=== PATIENT | female | born 1950 | race American Indian/Alaskan Native ===

== ENCOUNTER 2017-07-30 13:44 | Inpatient (IN) | payer BC, MEDICARE ==
[2017-07-30] MEDS: Sodium Chloride 0.9% 1,000 ML IV SCH ×3 (14:15→22:32)
[2017-07-30 14:29] LABS: BASO # 0.03 K/mm3 (0.0-2.0); BASO % 0.3 % (0.0-3.0); GRAN # 7.22 (1.4-6.5); GRAN % 80.8 % (50.0-68.0); HEMOGLOBIN 15.5 g/dL (12.0-16.0); LYMPH # 1.4 (1.2-3.4); LYMPH % 15.5 % (22.0-35.0); MEAN CELL VOLUME 91.6 fl (80.0-105.0); MEAN CORPUSCULAR HEMOGLOBIN 31.6 pg (25.0-35.0); MEAN CORPUSCULAR HGB CONC 34.5 g/dl (31.0-37.0); MEAN PLATELET VOLUME 10.1 fl (7.0-11.0); MONO # 0.3 (0.1-0.6); MONO % 3.4 % (1.0-6.0); RBC 4.9 10^6/uL (3.5-6.1); RED CELL DISTRIBUTION WIDTH 13.4 % (11.5-14.5); WHITE BLOOD COUNT 8.9 10^3/ul (4.5-11.0)
[2017-07-30 14:40] LABS: ALB/GLOB RATIO 1.5 (1.1-1.8); ALBUMIN 4.7 g/dL (3.0-4.8); ALT/SGPT 72 U/L (7-56); AMYLASE 128 U/L (35-125); AST/SGOT 48 U/L (14-36); BLOOD UREA NITROGEN 18 mg/dL (7-21); CALCIUM 11.9 mg/dL (8.4-10.5); GFR AFRICAN-AMERICAN > 60; GFR NON-AFRICAN AMERICAN > 60; LIPASE 63 U/L (23-300)
[2017-07-30 14:46] LABS: INR 0.94 (0.93-1.08); PROTHROMBIN TIME 10.7 SECONDS (9.4-12.5)
[2017-07-30 14:51] LABS: TROPONIN I < 0.01 ng/mL
--- NOTE | 2017-07-30 15:14 | RAD ---
HISTORY: vomiting - r/o free air COMPARISON: No prior. FINDINGS: LUNGS: The lungs are well inflated and clear. PLEURA: No significant pleural effusion identified, no pneumothorax apparent. CARDIOVASCULAR: Normal. OSSEOUS STRUCTURES: No significant abnormalities. VISUALIZED UPPER ABDOMEN: Normal. OTHER FINDINGS: None. IMPRESSION: No active pulmonary disease.
[2017-07-30 16:27] LABS: URINE BILIRUBIN NEGATIVE (NEGATIVE); URINE BLOOD TRACE-INTACT (NEGATIVE); URINE GLUCOSE (UA) NEGATIVE (NEGATIVE); URINE LEUKOCYTE ESTERASE NEGATIVE Leu/uL (NEGATIVE); URINE PROTEIN TRACE mg/dL (<30 mg/dL); URINE UROBILINOGEN 0.2 E.U./dL (<1 E.U./dL)
[2017-07-30 16:28] LABS: URINE APPEARANCE CLEAR (CLEAR); URINE COLOR YELLOW (YELLOW)
--- NOTE | 2017-07-30 16:30 | ED PDOC ---
Arrival/HPI - General Chief Complaint: GI Problem Time Seen by Provider: 07/30/17 13:48 Historian: Patient - History of Present Illness Narrative History of Present Illness (Text): 07/30/17 13:55 Daniella Terry is a 66 year old female, whose past medical history includes HIV on HAART therapy, unknown CD4 count, who presents to the emergency department complaining of vomiting bright and dark blood since earlier this month. Patient notes that he has a history of gastric ulcers and his last endoscopy was 3 years ago. Patient does not currently take any GI medication. No other complaints at this time. Time/Duration: < month Symptom Onset: Gradual Symptom Course: Intermittent Activities at Onset: Light Context: Home Past Medical History - Provider Review Nursing Documentation Reviewed: Yes - Cardiac Hx Cardiac Disorders: No - Pulmonary Hx Respiratory Disorders: No - Neurological Hx Neurological Disorder: No - HEENT Hx HEENT Disorder: No - Renal Hx Renal Disorder: No - Endocrine/Metabolic Hx Endocrine Disorders: No - Hematological/Oncological Hx Blood Disorders: Yes - Musculoskeletal/Rheumatological Hx Musculoskeletal Disorders: No - Gastrointestinal Hx Gastrointestinal Disorders: Yes Hx Gastrointestinal Ulcer: Yes - Genitourinary/Gynecological Hx Genitourinary Disorders: No - Psychiatric Hx Substance Use: Yes (COCAINE) - Surgical History Hx Hysterectomy: Yes - Anesthesia Hx Anesthesia: Yes Family/Social History - Physician Review Nursing Documentation Reviewed: Yes Family/Social History: No Known Family HX Smoking Status: Heavy Smoker > 10 Cigarettes Daily Hx Alcohol Use: Yes Hx Substance Use: Yes (COCAINE) Allergies/Home Meds Allergies/Adverse Reactions: Allergies No Known Allergies Allergy (Verified 07/30/17 13:47) Home Medications: Home Meds Medication Instructions Recorded Confirmed Elviteg/Cob/Emtri/Tenof Alafen 1 tab PO DAILY 07/30/17 07/30/17 [Genvoya Tablet] Review of Systems - Physician Review All systems were reviewed & negative as marked: Yes - Review of Systems Constitutional: absent: Fevers, Night Sweats Eyes: absent: Vision Changes ENT: absent: Hearing Changes Respiratory: absent: SOB, Cough Cardiovascular: absent: Chest Pain Gastrointestinal: Vomiting, Hematemesis Genitourinary Female: absent: Dysuria Musculoskeletal: absent: Arthralgias, Back Pain Skin: absent: Rash, Pruritis Neurological: absent: Headache, Dizziness Endocrine: absent: Diaphoresis Hemo/Lymphatic: absent: Adenopathy Psychiatric: absent: Anxiety, Depression Physical Exam Vital Signs Reviewed: Yes Vital Signs Temp Pulse Resp BP Pulse Ox 07/30/17 16:57 82 18 147/76 98 07/30/17 15:20 98.5 F 94 H 18 132/47 L 97 07/30/17 13:48 98.9 F 79 23 138/77 100 Temperature: Afebrile Blood Pressure: Normal Pulse: Regular Respiratory Rate: Normal Appearance: Positive for: Other (Actively vomiting in emergency department) Pain Distress: Mild Mental Status: Positive for: Alert and Oriented X 3 - Systems Exam Head: Present: Atraumatic, Normocephalic Pupils: Present: PERRL Extroacular Muscles: Present: EOMI Conjunctiva: Present: Normal Mouth: Present: Moist Mucous Membranes Neck: Present: Normal Range of Motion Respiratory/Chest: Present: Clear to Auscultation, Good Air Exchange. No: Respiratory Distress, Accessory Muscle Use Cardiovascular: Present: Regular Rate and Rhythm, Normal S1, S2. No: Murmurs Abdomen: Present: Normal Bowel Sounds. No: Tenderness, Distention, Peritoneal Signs Back: Present: Normal Inspection Upper Extremity: Present: Normal Inspection. No: Cyanosis, Edema Lower Extremity: Present: Normal Inspection. No: Edema Neurological: Present: GCS=15, CN II-XII Intact, Speech Normal Skin: Present: Warm, Dry, Normal Color. No: Rashes Psychiatric: Present: Alert, Oriented x 3, Normal Insight, Normal Concentration Medical Decision Making ED Course and Treatment: 07/30/17 13:55 Impression: 66 year old female complaining of vomiting bright and dark blood since earlier this month. Plan: -- EKG -- Chest X-ray -- Urine Culture and Urinalysis -- Labs -- Pepcid, Zofran, Protonix, and IV fluids -- Reassess and disposition Progress Notes: 07/30/17 14:[address] Sosa, who accepts patient admission to telemetry with Dr. Chowdhury for GI consult. 07/30/17 17:04 Chest X-ray: Creator : Rosalee Small MD FINDINGS: LUNGS:The lungs are well inflated and clear. PLEURA:No significant pleural effusion identified, no pneumothorax apparent. CARDIOVASCULAR:Normal. OSSEOUS STRUCTURES:No significant abnormalities. VISUALIZED UPPER ABDOMEN:Normal. OTHER FINDINGS:None. IMPRESSION: No active pulmonary disease. - Lab Interpretations Lab Results: 07/30/17 14:20 07/30/17 14:20 Lab Results 07/30/17 14:30: Blood Type O POSITIVE, Antibody Screen Negative, BBK History Checked No verified bt 07/30/17 14:20: Sodium 146, Potassium 4.1, Chloride 106, Carbon Dioxide 26, Anion Gap 18, BUN 18, Creatinine 0.9, Est GFR ( Amer) > 60, Est GFR (Non- Af Amer) > 60, Random Glucose 129 H, Calcium 11.9 H, Total Bilirubin 0.4, AST 48 H, ALT 72 H, Alkaline Phosphatase 120, Lactate Dehydrogenase 515, Total Creatine Kinase 37, Troponin I < 0.01, Total Protein 7.7, Albumin 4.7, Globulin 3.0, Albumin/Globulin Ratio 1.5, Amylase 128 H, Lipase 63 07/30/17 14:20: PT 10.7, INR 0.94, APTT 23.0 L 07/30/17 14:20: WBC 8.9, RBC 4.90, Hgb 15.5, Hct 44.9, MCV 91.6, MCH 31.6, MCHC 34.5, RDW 13.4, Plt Count 384, MPV 10.1, Gran % 80.8 H, Lymph % (Auto) 15.5 L, [place] % (Auto) 3.4, Eos % (Auto) 0.0 L, Baso % (Auto) 0.3, Gran # 7.22 H, Lymph # (Auto) 1.4, [place] # (Auto) 0.3, Eos # (Auto) 0.0, Baso # (Auto) 0.03 I have reviewed the lab results: Yes - RAD Interpretation Radiology Orders: 07/30/17 14:39 CHEST PORTABLE [RAD] Stat - Medication Orders Current Medication Orders: Famotidine (Pepcid) 40 mg PO HS LA NENA Sodium Chloride (Sodium Chloride 0.9%) 1,000 mls @ 100 mls/hr IV .Q10H LA NENA Non-Formulary Medication (Elviteg/Cob/Emtri/Tenof Alafen [Genvoya Tablet]) 1 tab PO DAILY LA NENA Ondansetron HCl (Zofran Inj) 4 mg IVP Q6 PRN PRN Reason: Nausea/Vomiting Discontinued Medications Famotidine (Pepcid) 20 mg IVP STAT STA Stop: 07/30/17 14:05 Last Admin: 07/30/17 14:17 Dose: 20 mg IVP Administration Document 07/30/17 14:17 [facility] (Rec: 07/30/17 14:17 [id number] Charges for Administration # of IVP Administrations 1 Sodium Chloride (Sodium Chloride 0.9%) 1,000 mls @ 200 mls/hr IV .Q5H LA NENA Last Admin: 07/30/17 18:08 Dose: 200 mls/hr eMAR Start Stop Document 07/30/17 18:08 LM (Rec: 07/30/17 18:08 LM [id number]) Intravenous Solution Start Date 07/30/17 Start Time 18:08 Ondansetron HCl (Zofran Inj) 8 mg IVP STAT STA Stop: 07/30/17 14:06 Last Admin: 07/30/17 14:16 Dose: 8 mg IVP Administration Document 07/30/17 14:16 [facility] (Rec: 07/30/17 14:16 [id number]) Charges for Administration # of IVP Administrations 1 Pantoprazole Sodium (Protonix Inj) 40 mg IVP STAT STA Stop: 07/30/17 14:06 Last Admin: 07/30/17 14:17 Dose: 40 mg IVP Administration Document 07/30/17 14:17 [facility] (Rec: 07/30/17 14:17 [id number]) Charges for Administration # of IVP Administrations 1 - Scribe Statement The provider has reviewed the documentation as recorded by the Amanda Cruz Provider Scribe Attestation: All medical record entries made by the Scribe were at my direction and personally dictated by me. I have reviewed the chart and agree that the record accurately reflects my personal performance of the history, physical exam, medical decision making, and the department course for this patient. I have also personally directed, reviewed, and agree with the discharge instructions and disposition. Disposition/Present on Arrival - Present on Arrival Any Indicators Present on Arrival: No History of DVT/PE: No History of Uncontrolled Diabetes: No Urinary Catheter: No History of Decub. Ulcer: No History Surgical Site Infection Following: None - Disposition Have Diagnosis and Disposition been Completed?: Yes Diagnosis: Upper GI bleed Disposition: HOSPITALIZED Disposition Time: 14:50 Condition: FAIR
[2017-07-30 16:47] LABS: URINE WBC 0 - 2 /hpf (0-6)
[2017-07-30 16:48] LABS: URINE BACTERIA FEW (NEG)
[2017-07-30 17:15] LABS: BARBITURATES, UR NEGATIVE (NEGATIVE); BENZODIAZEPINES, UR NEGATIVE (NEGATIVE); OPIATES, UR NEGATIVE (NEGATIVE); PHENCYCLIDINE, UR NEGATIVE (NEGATIVE)
[2017-07-30 22:49] VITALS: BMI 20.3
[2017-07-30] MEDS ORDERED: Influenza Vaccine 60 mcg/0.5 mL SYR (4YR UP) IM ONE (22:49)
[2017-07-30] MEDS ORDERED: Pneumococcal 23-Valent Vaccine IM ONE (22:49)
--- NOTE | 2017-07-30 23:46 | CARD ---
APPROVED REPORT EKG Measurement Heart [id number] <Conclusion> Normal sinus rhythm Right atrial enlargement Borderline ECG
[2017-07-31] MEDS: Sodium Chloride 0.9% 1,000 ML IV SCH (08:35)
--- NOTE | 2017-07-31 08:37 | CON ---
DATE: 07/30/2017 REASON FOR CONSULTATION: GI bleeding. HISTORY OF PRESENT ILLNESS: This patient was seen and evaluated earlier today. This is a 66-year-old patient with past medical history of HIV positive, on HAART therapy, presented to the emergency room complaining of vomiting bright red blood from this morning. Patient has no history of melena, no diarrhea. Patient has been followed by , senior training specialist in [facility] and also followed by the Infectious Disease specialist, Dr. Nava. Patient, two years ago, was admitted in [facility] and had a colonoscopy done at that time. She remembers having the last endoscopy done within two to three years ago by in [place]. PAST MEDICAL HISTORY: Other past medical history is significant as above. Status post hysterectomy, history of peptic ulcer disease in the past. SOCIAL HISTORY: Positive for smoking about 10 cigarettes per day, positive for alcohol, and positive for cocaine. ALLERGIES: NO KNOWN DRUG ALLERGIES. REVIEW OF SYSTEMS: Positive as above. PHYSICAL EXAMINATION: GENERAL: Patient is lying on the bed, not in acute distress. VITAL SIGNS: Pulse 79 per minute, respirations 23, blood pressure 138/77, temperature 98.7. HEENT: Atraumatic, anicteric. NECK: Supple. HEART: S1, S2 heard. LUNGS: Bilateral air entry present. ABDOMEN: Soft. There is mild tenderness on deep palpation of the epigastric area. EXTREMITIES: No edema. No cyanosis. NEUROLOGIC: Alert, oriented. Moves all the extremities. LABORATORY DATA: Hemoglobin 15.5, hematocrit 44.9, WBC 8.9, platelets 384. Chemistry showed calcium 11.9, elevated. AST 78, ALT 72. IMPRESSION: This is a 66-year-old patient admitted with: 1. Vomiting, hematemesis. The differential diagnosis should include Christine-Marcial tear, peptic ulcer disease, erosive esophagitis, and neoplasia. 2. Hypercalcemia, etiology is unclear. 3. Human immunodeficiency virus positive. CD4 count unknown, being followed by Dr. Nava, on highly active antiretroviral therapy. 4. History of colon polyps. Last colonoscopy was less than two years ago in [facility]. RECOMMENDATIONS: 1. Followup of the hemoglobin and hematocrit. 2. IV fluids, PPI therapy. 3. Pepcid 20 mg every 12 hourly. 4. We will schedule for an upper GI endoscopy. 5. The etiology for hypercalcemia is unclear. Would recommend repeating the labs in the a.m. Thank you very much for allowing me to participate in the care of your patient. Bowen Chowdhury MD
[2017-07-31] MEDS: [UNRECOGNIZED DRUG - OTHER] PO SCH (11:06)
[2017-07-31] MEDS ORDERED: Propofol 10 mg/ml Inj (20 ML) ONE (14:45)
[2017-07-31] MEDS ORDERED: Sodium Chloride 0.9% 1,000 ML IV SCH (19:15)
--- NOTE | 2017-08-01 03:23 | HP ---
CHIEF COMPLAINT: Vomiting with blood. HISTORY OF PRESENT ILLNESS: Ms. Daniella Terry is a 66-year-old female with past medical history of HIV positive, on HAART therapy, unknown CD count, came to the emergency department complaining of vomiting, bright and dark blood since earlier on this month. The patient noticed she has a history of gastric ulcers and her last endoscopy was three years ago. The patient is not currently taking any GI medications. When I saw the patient, daughter was standing on the bedside. The patient was not having vomiting, but was ready to go for upper endoscopy. PAST MEDICAL HISTORY: History of peptic ulcer disease, history of cocaine abuse, hysterectomy. FAMILY HISTORY: Father and mother, unknown. SOCIAL HISTORY: Smoking, heavy smoking more than 10 cigarettes a day. Alcohol, yes. Substance abuse cocaine, yes. ALLERGIES: THE PATIENT IS NOT ALLERGIC WITH ANY MEDICATIONS. HOME MEDICATIONS: noted REVIEW OF SYSTEMS: The patient was seen and examined on bedside in her room. Feeling better. No more upper GI bleeding. No more headaches, fevers. No chest pain. No palpitation. No hematuria or hematochezia at that moment. PHYSICAL EXAMINATION: VITALS SIGNS: Temperature 98.3, pulse 71, blood pressure 120/67, respiratory rate 15. HEENT: Head is normocephalic and atraumatic. Eyes: PERRLA. Extraocular muscles intact. Conjunctivae clear. Nose patent. Mucous membranes moist. NECK: Supple. No carotid bruits. No JVD or thyromegaly. CHEST: Bilaterally symmetrical. HEART: S1 and S2 positive. LUNGS: Clear to auscultation. ABDOMEN: Soft. Bowel sounds present. No organomegaly. EXTREMITIES: No edema. No cyanosis. NEUROLOGIC: Patient is awake, alert. Moving all 4 extremities. No focal deficit. LABORATORY DATA: White blood cells 8.9, hemoglobin is 15.5, hematocrit is 44.9, platelets 384. Sodium 146, potassium 4.1. BUN 18, creatinine of 0.9, glucose 129, calcium 11.9, AST 48, ALT 72. ASSESSMENT AND PLAN: Ms. Harrison Brewer is a 66-year-old lady with hyperglycemia, hypercalcemia, abnormal liver function test, proteinuria, hematuria, drug screening is positive for cocaine and cannabinoid, history of HIV positive, getting treatment from Infectious Disease doctor. Seen by Dr. Bowen Chowdhury - bookmobile clerk, came with upper gastrointestinal bleeding. History of hematemesis, rule out Christine-Marcial tear, peptic ulcer disease, erosive esophagitis and neoplasia. Etiology of hypercalcemia is unclear. CD4 count unknown, being followed up by Dr. Nava, on high active antiviral therapy. History of colon polyps. Last colonoscopy was less than two years ago in [facility]. We have to follow up with hemoglobin and hematocrit, IV fluids, proton pump inhibitor, Pepcid. The patient went for upper endoscopy by Dr. Chowdhury. I have discussion done with Dr. Chowdhury. Postoperative diagnoses are esophageal ulceration, rule out esophageal herpes simplex virus and cytomegalovirus, 1 cm hiatal hernia, Schatzki's ring, gastritis, duodenal ulcer. Started the patient on clear liquid diet. Will give full liquid breakfast and tomorrow soft lunch as tolerated. If she will tolerate, then we will plan for discharge planning. Meanwhile, monitoring H&H. We will follow up. Freda Sosa MD MTDTerri
[2017-08-01 07:25] LABS: HEMOGLOBIN 11.7 g/dL (12.0-16.0); MEAN CELL VOLUME 91.8 fl (80.0-105.0); MEAN CORPUSCULAR HGB CONC 32.7 g/dl (31.0-37.0); MEAN PLATELET VOLUME 9.8 fl (7.0-11.0); RBC 3.9 10^6/uL (3.5-6.1); RED CELL DISTRIBUTION WIDTH 13.2 % (11.5-14.5); WHITE BLOOD COUNT 4.9 10^3/ul (4.5-11.0)
[2017-08-01 07:32] LABS: IRON 86 ug/dL (45-180)
[2017-08-01 07:35] LABS: BLOOD UREA NITROGEN 5 mg/dL (7-21); CALCIUM 10.2 mg/dL (8.4-10.5); GFR AFRICAN-AMERICAN > 60; GFR NON-AFRICAN AMERICAN > 60; HDL CHOLESTEROL 52 mg/dL (29-60)
[2017-08-01 07:42] LABS: % IRON SATURATION 30 % (20-55); TOTAL IRON BINDING CAPACITY 290 ug/dL (265-497)
[2017-08-01 07:43] LABS: LDL CHOLESTEROL 50 mg/dL (0-129)
[2017-08-01] MEDS ORDERED: Potassium Chloride 20 mEq ER Tab PO ONE (08:40)
[2017-08-01] MEDS: [UNRECOGNIZED DRUG - OTHER] PO SCH (10:27)
--- NOTE | 2017-08-01 11:04 | CP.PCM.PN ---
<Luli Rose - Last Filed: 08/01/17 11:00> Subjective - Date & Time of Evaluation Date of Evaluation: 08/01/17 Time of Evaluation: 09:50 - Subjective Subjective: S&E at bedside, chart reviewed, s/p EGD found to have esophageal ulcer, and clean based duodenal ulcer, gastritis, w/ BX, no abdominal pain, N/V , fever, sob or CP. Tolerating oral intake. Lasr BM yesterday, no diarrhea, or overt GI bleeding. Objective - Vital Signs/Intake and Output Vital Signs (last 24 hours): Temp Pulse Resp BP Pulse Ox 98.6 F 57 L 19 138/81 99 08/01/17 06:00 08/01/17 06:00 08/01/17 06:00 08/01/17 06:00 08/01/17 06:00 Intake and Output: 08/01/17 08/01/17 06:59 18:59 Intake Total 1530 Output Total 3 Balance 1527 - Medications Medications: Current Medications Famotidine (Pepcid) 40 mg PO HS [facility] Last Admin: 07/31/17 21:24 Dose: 40 mg Sodium Chloride (Sodium Chloride 0.9%) 1,000 mls @ 50 mls/hr IV .Q20H [facility] Last Admin: 07/31/17 19:16 Dose: 50 mls/hr Non-Formulary Medication (Elviteg/Cob/Emtri/Tenof Alafen [Genvoya Tablet]) 1 tab PO DAILY [facility] Last Admin: 08/01/17 10:27 Dose: Not Given Ondansetron HCl (Zofran Inj) 4 mg IVP Q6 PRN PRN Reason: Nausea/Vomiting - Labs Labs: 08/01/17 07:00 08/01/17 07:00 PT 10.7 SECONDS (9.4-12.5) 07/30/17 14:20 INR 0.94 (0.93-1.08) 07/30/17 14:20 APTT 23.0 Seconds (25.1-36.5) L 07/30/17 14:20 - Constitutional Appears: No Acute Distress - Head Exam Head Exam: NORMOCEPHALIC - Eye Exam Eye Exam: Normal appearance. absent: Scleral icterus - ENT Exam ENT Exam: Mucous Membranes Moist - Neck Exam Neck Exam: Normal Inspection - Respiratory Exam Respiratory Exam: NORMAL BREATHING PATTERN. absent: Respiratory Distress - Cardiovascular Exam Cardiovascular Exam: +S1, +S2 - GI/Abdominal Exam GI & Abdominal Exam: Soft, Normal Bowel Sounds. absent: Guarding, Tenderness, Rebound - Extremities Exam Extremities Exam: absent: Calf Tenderness, Pedal Edema - Neurological Exam Neurological Exam: Alert, Awake, Oriented x3 - Skin Skin Exam: Dry, Warm Assessment and Plan - Assessment and Plan (Free Text) Assessment: ASSESSMENT: S/P Hematemesis, s/p EGD found Esophageal ulcer, Duodenal clean base ulcer H/O HIV H/O Colon Polyps PLAN: diet as tolerated on solids continue Pepcid 40 mg HS monitor H/h for GI bleeding discuss avoid NSAIDS, cut down /avoid alcohol, lifestyle changes for reflux discuss will need repeat EGD in 2 months for FU ulcer, patient informs that she FU outpatient w/ Dr. Joyce, in [place], patientshould be given copy of EGD report on discharge. Seen and discussed w/ Dr. Chowdhury. <Bowen Chowdhury V - Last Filed: 08/01/17 23:10> Objective - Vital Signs/Intake and Output Vital Signs (last 24 hours): Temp Pulse Resp BP Pulse Ox 98.3 F 54 L 18 163/84 H 100 08/01/17 12:00 08/01/17 12:00 08/01/17 12:00 08/01/17 12:00 08/01/17 10:00 Intake and Output: 08/01/17 08/02/17 18:59 06:59 Intake Total 1320 Balance 1320 - Medications Medications: Current Medications Atorvastatin Calcium (Lipitor) 10 mg PO DIN LA NENA Famotidine (Pepcid) 40 mg PO HS [facility] Last Admin: 08/01/17 21:36 Dose: 40 mg Fenofibrate (Tricor) 145 mg PO DAILY [facility] Non-Formulary Medication (Elviteg/Cob/Emtri/Tenof Alafen [Genvoya Tablet]) 1 tab PO DAILY [facility] Last Admin: 08/01/17 10:27 Dose: Not Given Ondansetron HCl (Zofran Inj) 4 mg IVP Q6 PRN PRN Reason: Nausea/Vomiting - Labs Labs: 08/01/17 07:00 08/01/17 07:00 PT 10.7 SECONDS (9.4-12.5) 07/30/17 14:20 INR 0.94 (0.93-1.08) 07/30/17 14:20 APTT 23.0 Seconds (25.1-36.5) L 07/30/17 14:20 Attending/Attestation - Attestation I have personally seen and examined this patient.: Yes I have fully participated in the care of the patient.: Yes I have reviewed all pertinent clinical information, including history, physical exam and plan: Yes Notes (Text): This is an addendum to GI progress report dictated by Luli Rose APN.The patient was seen and examined earlier. Medical records, lab studies, imagings were reviewed. Last 24 hours events reviewed. Agreed with the above treatment plan as outlined in Luli Rose APN's notes the with the addition of the following 08/01/17 23:09
[2017-08-01 13:12] VITALS: O2SAT 100
[2017-08-01 13:20] LABS: FOLATE 11.9 ng/mL
[2017-08-02 07:11] LABS: HEMOGLOBIN 12.7 g/dL (12.0-16.0); MEAN CELL VOLUME 90.7 fl (80.0-105.0); MEAN CORPUSCULAR HEMOGLOBIN 30.2 pg (25.0-35.0); MEAN CORPUSCULAR HGB CONC 33.3 g/dl (31.0-37.0); MEAN PLATELET VOLUME 9.6 fl (7.0-11.0); RBC 4.2 10^6/uL (3.5-6.1); WHITE BLOOD COUNT 4.1 10^3/ul (4.5-11.0)
[2017-08-02 07:33] LABS: ALB/GLOB RATIO 1.3 (1.1-1.8); ALBUMIN 3.7 g/dL (3.0-4.8); ALT/SGPT 32 U/L (7-56); AST/SGOT 34 U/L (14-36); BILIRUBIN,DIRECT 0.3 mg/dL (0.0-0.4); BLOOD UREA NITROGEN 6 mg/dL (7-21); CALCIUM 10.9 mg/dL (8.4-10.5); GFR AFRICAN-AMERICAN > 60; GFR NON-AFRICAN AMERICAN > 60
--- NOTE | 2017-08-02 08:39 | PN ---
DATE: 08/01/2017 SUBJECTIVE: The patient is a 66-year-old female. The patient was seen and examined at the bedside. Tolerated liquid food, but with full liquid, she was feeling heaviness in the stomach and she went for bowel movement and that was black. Patient has a big drop in hemoglobin; on admission, it was 5.5 and repeat is 11.7. We stopped IV fluid to make sure it is not dilution and will do stool guaiac test. I offered the patient soft-liquid diet. No nausea, vomiting or diarrhea. No hematuria. No hematochezia. No headache. No dizziness. PHYSICAL EXAMINATION: VITAL SIGNS: Temperature 98.3, pulse 54, blood pressure 153/84, respiratory rate 18. HEENT: Head normocephalic, atraumatic. Eyes: PERRLA. Extraocular muscles are intact. Conjunctivae clear. Nose patent. NECK: Supple. No carotid bruits. No JVD or thyromegaly. CHEST: Bilaterally symmetrical. HEART: S1, S2 positive. LUNGS: Clear to auscultation. ABDOMEN: Soft. Bowel sounds present. No organomegaly. EXTREMITIES: No edema. No cyanosis. NEUROLOGIC: The patient is awake, alert. Moving all four extremities. No focal deficit. MEDICATIONS: HIV medication, Pepcid and Zofran. LABORATORY DATA: White blood cells 4.9, hemoglobin 11.7, hematocrit 35.8, platelets 276. Sodium 142; potassium 3.5, will be replaced that; chloride 108. Hemoglobin A1c 5.2. AST 84, ALT 72, triglycerides 295 and cholesterol noted ASSESSMENT AND PLAN: Daniella Terry is a 66-year-old lady with anemia, big drop of hemoglobin and hematocrit, hypokalemia with hyperchloremia, hypercalcemia, hyperglycemia, abnormal liver function test, hypercholesterolemia, hypertriglyceridemia, proteinuria, hematuria, stool occult is negative and cocaine and cannabinoid is positive, came with upper gastrointestinal bleeding, did endoscopy by Dr. Chowdhury and found to have esophageal ulcers and clean-based duodenal ulcers, gastritis with biopsy done, status post hematemesis, history of human immunodeficiency virus and colon polyp. Advanced diet as tolerated. Continue monitoring Hand H. Continue Pepcid. No NSAIDs. Discussion done with the patient lifestyle modifications, gastroesophageal reflux disease, dyspepsia. Need esophagogastroduodenoscopy in 2 months for followup ulcers. Patient has history of stomach ulcers. Dr. Caride, patient's shiatsu therapist. We will start some cholesterol medications. Gastrointestinal and deep venous thrombosis prophylaxis. Repeat labs. We will follow up. Freda Sosa MD MTDTerri
[2017-08-02] MEDS: [UNRECOGNIZED DRUG - OTHER] PO SCH (09:36)
[2017-08-02 12:17] VITALS: BP 150/81; PULSE 58; TEMP 98.8
[2017-08-02 12:40] VITALS: RESP 16
--- NOTE | 2017-08-02 16:13 | CP.PCM.PN ---
Subjective - Date & Time of Evaluation Date of Evaluation: 08/02/17 Time of Evaluation: 10:25 - Subjective Subjective: Seen and examined at the bedside earlier today, chart reviewed. Patient with no new complaints. Tolerating oral intake, denies nausea, vomiting, or abdominal pain. No acute overnight events reported as per nursing staff. Objective - Vital Signs/Intake and Output Vital Signs (last 24 hours): Temp Pulse Resp BP Pulse Ox 98.8 F 58 L 16 150/81 100 08/02/17 08:00 08/02/17 08:00 08/02/17 08:00 08/02/17 08:00 08/02/17 08:00 Intake and Output: 08/02/17 08/02/17 06:59 18:59 Intake Total 1560 Balance 1560 - Labs Labs: 08/02/17 06:40 08/02/17 06:40 PT 10.7 SECONDS (9.4-12.5) 07/30/17 14:20 INR 0.94 (0.93-1.08) 07/30/17 14:20 APTT 23.0 Seconds (25.1-36.5) L 07/30/17 14:20 - Constitutional Appears: No Acute Distress - Head Exam Head Exam: NORMOCEPHALIC - Eye Exam Eye Exam: Normal appearance. absent: Scleral icterus - ENT Exam ENT Exam: Mucous Membranes Moist - Neck Exam Neck Exam: Normal Inspection - Respiratory Exam Respiratory Exam: NORMAL BREATHING PATTERN. absent: Respiratory Distress - Cardiovascular Exam Cardiovascular Exam: +S1, +S2 - GI/Abdominal Exam GI & Abdominal Exam: Soft, Normal Bowel Sounds. absent: Guarding, Tenderness, Rebound - Extremities Exam Extremities Exam: absent: Calf Tenderness, Pedal Edema - Neurological Exam Neurological Exam: Alert, Awake, Oriented x3 - Skin Skin Exam: Dry, Warm Assessment and Plan - Assessment and Plan (Free Text) Assessment: ASSESSMENT: S/P Hematemesis, s/p EGD found Esophageal ulcer, Duodenal clean base ulcer H/O HIV H/O Colon Polyps PLAN: Heart healthy continue Pepcid 40 mg HS monitor H/h for GI bleeding discuss avoid NSAIDS, cut down /avoid alcohol, lifestyle changes for reflux discuss will need repeat EGD in 2 months for FU ulcer, patient informs that she FU outpatient w/ Dr. [place], [place], Seen and discussed w/ Dr. Chowdhury.
== END 2017-08-02 13:13 | disposition home or self-care (01) | DRG 378 ==
LOC: ED 13:44 → ERH 15:25 → 3RSO 17:37 → OBSVTOIN 07-31 22:07 → 5RSO 08-01 14:00
PROVIDERS: ADMIT Internal Medicine; ATTEND Internal Medicine
PROC: 0DB68ZX Excision of Stomach, Via Natural or Artificial Opening Endoscopic, Diagnostic (ICD-10-PCS; 2017-07-31)
PROC: 0DB58ZX Excision of Esophagus, Via Natural or Artificial Opening Endoscopic, Diagnostic (ICD-10-PCS; principal; 2017-07-31 14:45)
DX: K92.0 Hematemesis (principal); K22.10 Ulcer of esophagus without bleeding; Z21 Asymptomatic human immunodeficiency virus [HIV] infection status; F14.10 Cocaine abuse, uncomplicated; K21.9 Gastro-esophageal reflux disease without esophagitis; K29.50 Unspecified chronic gastritis without bleeding; K26.9 Duodenal ulcer, unspecified as acute or chronic, without hemorrhage or perforation; K29.70 Gastritis, unspecified, without bleeding; D64.9 Anemia, unspecified; E87.6 Hypokalemia; E83.52 Hypercalcemia; E78.00 Pure hypercholesterolemia, unspecified; E78.1 Pure hyperglyceridemia; F17.210 Nicotine dependence, cigarettes, uncomplicated; K44.9 Diaphragmatic hernia without obstruction or gangrene; Z87.11 Personal history of peptic ulcer disease; Z86.010 Personal history of colon polyps; Z90.710 Acquired absence of both cervix and uterus